=== PATIENT | female | born 1975 | race African-American/Black ===

== ENCOUNTER 2025-02-04 05:38 | Emergency (ER) | payer SELFPAY ==
--- OUTSIDE RECORDS SUMMARY | 2025-01-19 02:02 | XMS_ITS | Continuity of Care Document ---
Author Organization [facility] [place] Address [address] [place] [address] Phone Care Team Providers Care Baggagemaster Name Role Phone Monroe MS, PT, ATC, Keara Unavailable Candace vailable Procedures Procedure Date Therapeutic Activities Therapeutic Exercise Neuromuscular Re-Ed Therapeutic Activities Neuromuscular Re-Ed ELECTRICIAN RADIO Acute Therapeutic Activities Neuromuscular Re-Ed Therapeutic Exercise ELECTRICIAN RADIO Acute Therapeutic Activities Therapeutic Exercise Therapeutic Activities Neuromuscular Re-Ed Therapeutic Exercise Hot or Cold Pack Therapeutic Activities Therapeutic Exercise PT Evaluation Moderate Complexity Therapeutic Activities Neuromuscular Re-Ed Therapeutic Exercise Hot or Cold Pack Therapeutic Activities Theraputty Therapeutic Activities Neuromuscular Re-Ed Therapeutic Exercise Identified as not an unhealthy alcohol u ser Not identified as unhealthy alcohol via screening OT Re-Evaluation Neuromuscular Re-Ed Therapeutic Activities Therapeutic Exercise Glove - Edema 3/4 Therapeutic Activities Neuromuscular Re-Ed Therapeutic Exercise Therapeutic Activities Neuromuscular Re-Ed Therapeutic Exercise Identified as not an unhealthy alcohol u ser Not identified as unhealthy alcohol via screening OT Evaluation Low Complexity Neuromuscular Re-Ed Therapeutic Activities Paraffin Bath Progress Note Therapeutic Activities Neuromuscular Re-Ed Therapeutic Exercise Manual Therapy Hot or Cold Pack Paraffin Bath Hot or Cold Pack Paraffin Bath Orthotic Mgmt and Training Safe Position Gutter Hand based 019 Therapeutic Exercise Therapeutic Activities Neuromuscular Re-Ed Hot or Cold Pack Manual Therapy Paraffin Bath Progress Note Therapeutic Activities Therapeutic Exercise Manual Therapy Neuromuscular Re-Ed Paraffin Bath Hot or Cold Pack Therapeutic Exercise Therapeutic Activities Neuromuscular Re-Ed Manual Therapy Hot or Cold Pack Paraffin Bath Therapeutic Exercise Therapeutic Activities Neuromuscular Re-Ed Manual Therapy Hot or Cold Pack Paraffin Bath Therapeutic Exercise Therapeutic Activities Neuromuscular Re-Ed Hot or Cold Pack Manual Therapy Paraffin Bath Progress Note Therapeutic Exercise Neuromuscular Re-Ed Therapeutic Activities Hot or Cold Pack Manual Therapy Therapeutic Exercise Therapeutic Activities Manual Therapy Neuromuscular Re-Ed Hot or Cold Pack Paraffin Bath Therapeutic Exercise Therapeutic Activities Manual Therapy Neuromuscular Re-Ed Paraffin Bath Hot or Cold Pack Therapeutic Exercise Therapeutic Activities Manual Therapy Therapeutic Exercise Therapeutic Activities Neuromuscular Re-Ed Manual Therapy Hot or Cold Pack Paraffin Bath LMB/Safety Pin Therapeutic Exercise Therapeutic Activities Neuromuscular Re-Ed Hot or Cold Pack Manual Therapy Therapeutic Exercise Therapeutic Activities Manual Therapy Hot or Cold Pack Neuromuscular Re-Ed Therapeutic Exercise Therapeutic Activities Neuromuscular Re-Ed Manual Therapy Hot or Cold Pack Therapeutic Exercise Therapeutic Activities Neuromuscular Re-Ed Manual Therapy Hot or Cold Pack Paraffin Bath Therapeutic Exercise Therapeutic Activities Neuromuscular Re-Ed Manual Therapy Hot or Cold Pack Paraffin Bath Therapeutic Exercise Therapeutic Activities Neuromuscular Re-Ed Manual Therapy Hot or Cold Pack Yoni Straps 2 Therapeutic Exercise Therapeutic Activities Neuromuscular Re-Ed Manual Therapy Hot or Cold Pack Therapeutic Exercise Therapeutic Activities Neuromuscular Re-Ed Manual Therapy Hot or Cold Pack Therapeutic Exercise Therapeutic Activities Neuromuscular Re-Ed Manual Therapy Hot or Cold Pack OT Evaluation Low Complexity Therapeutic Exercise Therapeutic Activities Manual Therapy Advance Directives Directive Yes / No Effective Date File Name No Information Encounters Encounter Description Practice Location Reason(s) For Visit Diagnoses Date Provider Providers Copied on Encounter [address], [id number], tel:[phone] [place] No Information 5 Monroe Sarah. [address] [place] [address], [address], [place], [place], [facility], . tel:[phone] [facility] [address] [place] [address], [id number], tel:[phone] [place] No Information Monroe Sarah. [address] [place] [address], [address], [place], [place], [facility], [place]. tel:[phone] Referring Provider: Cirilo Shaw, [address] [place] [address] [address], [place], [address]. tel:[phone] [facility] [address], [id number], tel:[phone] [place] No Information 5 Yany Muller. . Referring Provider: Crow delatorre, [address] [place] [address] [address], [place], [address]. tel:[phone] [facility] [address] [place] [address], [place], [id number], tel:[phone] [place] No Information 5 Monroe Sarah. [address] [place] [address], [address], [place], [place], [facility], . tel:[phone] Referring Provider: Cirilo Shaw, [address] [place] [address] [address], [place], [address]. tel:[phone] [facility], [place], [place], [id number], [place] tel:[phone] [place] No Information 5 Yany Muller. . Referring Provider: Crow delatorre, [address], [place], [address]. tel:[phone] [facility], [place], [place], [id number], [place] tel:[phone] [place] No Information 5 [facility]. . Referring Provider: Cirilo Shaw, [address], [place], [address]. tel:[phone] [facility], [place], [place], [address], [place] tel:[phone] [place] No Information 5 Yany Muller. . Referring Provider: Crow delatorre, [address], [place], [address]. tel:[phone] [facility], [place], [place], [address], [place] tel:[phone] [place] No Information 5 [place] Brynn. . Referring Provider: Cirilo Shwa, [address], [place], [address]. tel:[phone] [facility], [place], [place], [id number], [place] tel:[phone] [place] No Information 5 Yany Muller. . Referring Provider: Crow delatorre, [address], [place], [address]. tel:[phone] [facility], [place], [place], [address], [place] tel:[phone] [place] No Information 5 Yany Muller. . Referring Provider: Crow Krummenach er, [address], [place], [address]. tel:[phone] [facility], [place], [place], [address], [place] tel:[phone] [place] No Information 5 Meirink Renzo. . Referring Provider: Crow delatorre, [address], [place], [address]. tel:[phone] [facility], [place], [place], [address], [place] tel:[phone] [place] No Information 5 Meirink Renzo. . Referring Provider: Crow delatorre, [address], [place], [address]. tel:[phone] [facility] [address], [place], [place], [id number], [place] tel:[phone] [place] No Information 5 Meirink Renzo. . Referring Provider: Crow delatorre, [address], [place], [address]. tel:[phone] [facility], [place], [place], [address], [place] tel:[phone] [place] No Information 5 Meirink Renzo. . Referring Provider: Crow delatorre, [address], [place], [address]. tel:[phone] [facility], [place], [place], [address], [place] tel:[phone] [place] No Information 9 Aiden Mcclendon. [address], [address], [place], [address], [place]. tel:[phone] Referring Provider: Frederick Childers, [address], [place], [address]. tel:[phone] [facility], [place], [place], [id number], tel:[phone] [place] No Information 0 Schwarztraube r Danelle. [address], [address], [place], [place], [facility], . tel:[phone] Referring Provider: Frederick Childers, [address], [place], [address]. tel:[phone] [facility], [place], [place], [address], tel:[phone] [place] No Information Kamari Martinez . Referring Provider: Frederick Childers, [address], [place], [address]. tel:[phone] [facility], [place], [place], [id number], tel:[phone] [place] No Information Schwarztraube r Danelle. [address] [facility] [address], [address], [place], [place], [facility], [place]. tel:[phone] Referring Provider: Frederick Childers, [address], [place], [address]. tel:[phone] [facility], [place], [place], [address], [place] tel:[phone] [place] No Information Schwarztraube r Danelle. [address] [facility] [address], [address], [place], [facility], . tel:[phone] Referring Provider: Frederick Childers, [address], [place], [address]. tel:[phone] [facility], [place], [place], [address], tel:[phone] [place] No Information Schwarztraube r Danelle. [address], [address], [place], [facility], . tel:[phone] Referring Provider: Frederick Childers, [address], [place], [address]. tel:[phone], [id number], tel:[phone] [place] No Information Schwarztraube r Danelle. [address], [address], [place], [facility], . tel:[phone] Referring Provider: Frederick Childers, [address], [place], [address]. tel:[phone], [id number], tel:[phone] [place] No Information Schwarztraube r Danelle. [address] [facility] [address], [address], [place], [facility], . tel:[phone] Referring Provider: Frederick Childers, [address], [place], [address]. tel:[phone], [id number], tel:[phone] [place] No Information Schwarztraube r Danelle. [address] [facility] [address], [address], [place], [facility], . tel:[phone] Referring Provider: Frederick Childers, [address], [place], [address]. tel:[phone] [place] [address], [id number], tel:[phone] [place] No Information Schwarztraube r Danelle. [address] [place] [address], [address], [place], [place], [facility], . tel:[phone] Referring Provider: Frederick Childers, [address], [place], [address]. tel:[phone] [place] [address] [address], [place], [place], [address], tel:[phone] [place] No Information Kamari Canales. . Referring Provider: Frederick Childers, [address], [place], [address]. tel:[phone] [facility] [address] [place] [address], [place], [place], [address], tel:[phone] [place] No Information Schwarztraube r Danelle. [address] [place] [address], [address], [place], [place], [facility], [place]. tel:[phone] Referring Provider: Frederick Childers, [address], [place], [address]. tel:[phone] [facility] [address] [place], [place] [address], [place], [place], [address], tel:[phone] [place] No Information Schwarztraube r Danelle. [address] [place] [address], [address], [place], [place], [facility], [place]. tel:[phone] Referring Provider: Frederick Childers, [address], [place], [address]. tel:[phone] [facility] [address] [place], [place] [address], [place], [place], [address], tel:[phone] [place] No Information 9 Schwarztraube r Danelle. [address] [place] [address], [address], [place], [address], [place]. tel:[phone] Referring Provider: Frederick Childers, [address], [place], [address]. tel:[phone] [facility], [place], [place], [address], [place] tel:[phone] [place] Stiffness of right hand, not elsewhere classifiedMusc le weakness (generalized)O ther specified soft tissue disordersPain in right hand 0 9 Schwarztraube r Danelle. [address] [place] [address], [address], [place], [address], [place]. tel:[phone] [facility], [place], [place], [address], [place] tel:[phone] [place] Stiffness of right hand, not elsewhere classifiedMusc le weakness (generalized)O ther specified soft tissue disordersPain in right hand 9 Schwarztraube r Danelle. [address] [facility], [address], [place], [address], [place]. tel:[phone] [facility], [place], [place], [address], [place] tel:[phone] [place] Stiffness of right hand, not elsewhere classifiedMusc le weakness (generalized)O ther specified soft tissue disordersPain in right hand 9 Schwarztraube r Danelle. [address] [facility], [address], [place], [address], [place]. tel:[phone] [facility], [place], [place], [address], [place] tel:[phone] [place] Stiffness of right hand, not elsewhere classifiedMusc le weakness (generalized)O ther specified soft tissue disordersPain in right hand 9 Schwarztraube r Danelle. [address] [facility], [address], [place], [address], [place]. tel:[phone] [facility], [place], [place], [address], tel:[phone] [place] Stiffness of right hand, not elsewhere classifiedMusc le weakness (generalized)O ther specified soft tissue disordersPain in right hand 9 Benites Ally. . [facility], [place], [place], [address], tel:[phone] [place] Stiffness of right hand, not elsewhere classifiedMusc le weakness (generalized)O ther specified soft tissue disordersPain in right hand 9 Aiden Mcclendon. [address] [facility], [address], [place], [address], . tel:[phone] [facility], [place], [place], [address], tel:[phone] [place] Stiffness of right hand, not elsewhere classifiedMusc le weakness (generalized)O ther specified soft tissue disordersPain in right hand 9 Benites Ally. . [facility], [place], [place], [address], tel:[phone] [place] Stiffness of right hand, not elsewhere classifiedMusc le weakness (generalized)O ther specified soft tissue disordersPain in right hand 9 Irvin Qiu. . Family History Family Member Type Diagnosis Age At Onset No Information Payers Payer name Insurance type Covered constitution party ID Authorasaa patti(s) [employer] EPO WC SP WC [id number] Social History Type Description Quantity Date Captured Comments Sex Female Smoking Status No Information Chief Complaint And Reason For Visit No Information Reason For Referral Reason For Referral No Information Plan Of Treatment Date Type Action Status Goal Tobacco cessation counseling completed Goal Tobacco Cessation Counseling completed Goal Tobacco cessation counseling completed Goal Tobacco Cessation Counseling completed Referral Ordered: Referrals: Specialist. Evaluate and Treat (related to Adjustment disorder with depressed mood) ordered Referral Ordered: Depression: Depression management program timeframe: 1 Day. (related to Depression) ordered Referral Ordered: Clinical Psychology (related to Depression) ordered Referral Ordered: Referrals: Specialist. Evaluate and Treat (related to Adjustment disorder with depressed mood) ordered Referral Ordered: Depression: Depression management program timeframe: 1 Day. (related to Depression) ordered Referral Ordered: Clinical Psychology (related to Depression) ordered Referral Ordered: Referrals: Specialist. Evaluate and Treat (related to Adjustment disorder with depressed mood) ordered Referral Ordered: Depression: Depression management program timeframe: 1 Day. (related to Depression) ordered Referral Ordered: Clinical Psychology (related to Depression) ordered Referral Ordered: Clinical Psychology (related to Depression) ordered Referral Ordered: Clinical Psychology (related to Depression) ordered Referral Ordered: Clinical Psychology (related to Depression) ordered History Of Present Illness Encounter Date Complaint History Of Prese nt Illness No Information Functional Status Date Functional Assessmen t No Information Instructions Date Instruction Additional Infor mation No Information Assessments Type Assessment Date No Information Patient Care Teams Name Effective Dates (start - stop) Status Members No Information
--- OUTSIDE RECORDS SUMMARY | 2025-02-01 04:30 | XMS_ITS | Continuity of Care Document ---
Author Organization [facility] Address [address] [place] [address] Phone Care Team Providers Care Chief Compressor Station Engineer Name Role Phone Vel EDMONDSON, Jamie Unavailable Unavailabl e Allergies, Adverse Reactions, Alerts Substance Reaction Status Criticality PENICILLIN Active No Information CEPHALEXIN MONOHYDRATE Itching(severe) Active No Information Medications Medication Instructions Dosage Effective Dates (start - stop) Status Comments carvedilol 12.5 mg tablet take 1 tablet by oral route 2 times every day with food 12.5 MG - Active hydrochlorothiazide 25 mg tablet take 1 tablet by oral route every day 25 MG - Active lisinopril 40 mg tablet take 1 tablet by oral route every day 40 MG - Active atorvastatin 40 mg tablet take 1 tablet by oral route every day 40 MG - Active Procedures Procedure Date DETERMINATION OF REFRACTIVE STATE OPH MEDICAL XM&EVAL COMPRE NEW PT 1+ VST Alcohol and/or drug screening OFFICE OUTPT EST 25 MIN Alcohol and/or drug screening 5 1ST COMPRE PREV MED E/M NEW PT 40-64 Nov Urinalysis, Auto, w/o Scope Caries Risk Assess & Doc High Risk Dental Panoramic Radiographic Image Comprehensive Oral Evaluation-New/Est Pt OFFICE/OUTPATIENT VISIT, EST OFFICE OUTPT EST 25 MIN HEMOGLOBIN; GLYCOSYLATED (A1C) HBA1C LEVEL < 7.0% (DM) PERIODIC COMPREHENSIVE PREVENTIVE MED RE E/M; ESTABLISHED PATIENT; 40-64 OFFICE OUTPT EST 25 MIN Alcohol and/or drug screening URINE TEST, BY VISUAL COLOR CO MPARISON METHODS Urinalysis, Auto, w/o Scope OFFICE/OUTPATIENT VISIT, EST Therapeutic behavioral services, per 15 minutes Injection, ketorolac tromethamine, per 3 0 mg OFFICE OUTPT EST 25 MIN URINE TEST, BY VISUAL COLOR CO MPARISON METHODS Urinalysis, Auto, w/o Scope BEHAVIORAL HEALTH OUTREACH SERVICE (PLAN ALISSA APPROACH TO REACH A TARGETED OFFICE/OUTPATIENT VISIT, EST OFFICE/OUTPATIENT VISIT, EST OFFICE/OUTPATIENT VISIT, EST Voided Encounter Voided Encounter SMEAR, WET MOUNT, SALINE/INK PERIODIC COMPREHENSIVE PREVENTIVE MED RE E/M; ESTABLISHED PATIENT; 40-64 Immun admin-adult or WO counseling - fir st vaccine/toxoid Fluzone, Preservative Free, 4yrs And Old er (Adult) SKIN TEST; TUBERCULOSIS, INTRADERMAL Jul Urinalysis, Auto, w/o Scope URINE TEST, BY VISUAL COLOR CO MPARISON METHODS Immun admin-adult or WO counseling - fir st vaccine/toxoid HEP A/HEP B VACC, ADULT IM OFFICE O/P EST 5 MIN Voided Encounter Voided Encounter OFFICE/OUTPATIENT VISIT, EST URINE TEST, BY VISUAL COLOR CO MPARISON METHODS Urinalysis, Auto, w/o Scope OFFICE/OUTPATIENT VISIT, EST PERIODIC COMPREHENSIVE PREVENTIVE MED RE E/M; ESTABLISHED PATIENT; 40-64 Urinalysis, Auto, w/o Scope OFFICE/OUTPATIENT VISIT, EST OFFICE/OUTPATIENT VISIT, EST OFFICE OUTPT EST 25 MIN HEMOGLOBIN; GLYCOSYLATED (A1C) 20 PERIODIC COMPREHENSIVE PREVENTIVE MED RE E/M; ESTABLISHED PATIENT; 40-64 Alcohol and/or drug screening 9 Urinalysis, Auto, w/o Scope URINE TEST, BY VISUAL COLOR CO MPARISON METHODS Urinalysis, Auto, w/o Scope HEPATITIS C ANTIBODY; HIV-1 Antigen, W/HIV-1 & HIV-2 Antibody, Single Re OFFICE/OUTPATIENT VISIT, EST Prescription Drug, Oral, Non-Chemotherap eutic, NOS Urinalysis, Auto, w/o Scope URINE TEST, BY VISUAL COLOR CO MPARISON METHODS OFFICE/OUTPATIENT VISIT, EST Urinalysis, Auto, w/o Scope URINE TEST, BY VISUAL COLOR CO MPARISON METHODS OFFICE/OUTPATIENT VISIT, EST Urinalysis, Auto, w/o Scope URINE TEST, BY VISUAL COLOR CO MPARISON METHODS HOSPITAL DISCHARGE DAY MANAGEMENT; 30 MT NUTES OR LESS 1ST HOSP CARE RI D 50 MIN OFFICE/OUTPATIENT VISIT, EST Urinalysis, Auto, w/o Scope URINE TEST, BY VISUAL COLOR CO MPARISON METHODS HOSPITAL DISCHARGE DAY MANAGEMENT; 30 MT NUTES OR LESS Voided Encounter 1ST HOSP CARE RI D 50 MIN LAPS TOTAL HYSTERECTOMY 250 G/< W TUBE/O VARY OFFICE/OUTPATIENT VISIT, EST Urinalysis, Auto, w/o Scope URINE TEST, BY VISUAL COLOR CO MPARISON METHODS HYSTEROSCOPY, SURGICAL; WITH REMOVAL OF LEIOMYOMATA OFFICE OUTPT EST 25 MIN HEMOGLOBIN; GLYCOSYLATED (A1C) 16 COLLECTION OF CAPILLARY BLOOD SPECIMEN ( EG, FINGER, HEEL, EAR STICK) COLLECTION OF VENOUS BLOOD BY VENIPUNCTU RE BLOOD COUNT; COMPLETE (CBC), AUTOMATED D IFF COMPRE METAB PANEL IRON IRON BINDING CAPACITY FERRITIN CYANOCOBALAMIN (VITAMIN B-12); 16 FOLIC ACID; SERUM THYROID STIMULATING HORMONE (TSH) LIPID PANEL THYROXINE; FREE OFFICE/OUTPATIENT VISIT, EST Urinalysis, Auto, w/o Scope URINE TEST, BY VISUAL COLOR CO MPARISON METHODS INJ MEDROXYPROGESTERONE ACETATE 1 MG Nov OFFICE/OUTPATIENT VISIT, NEW Alcohol and/or drug screening 6 URINE TEST, BY VISUAL COLOR CO MPARISON METHODS Urinalysis, Auto, w/o Scope COLLECTION OF VENOUS BLOOD BY VENIPUNCTU RE Advance Directives Directive Yes / No Effective Date File Name No Information Encounters Encounter Description Practice Location Reason(s) For Visit Diagnoses Date Provider Providers Copied on Encounter [facility], [address], [place], [place], [address] , [place] tel: [phone] Ditto Bianchi No Information 5 Vel Ayala. [address], [place], [place], [address], [place]. [phone] [facility], [address], [place], [place], [address] , [place] tel: [phone] [facility] [place] [facility] blurry vision (chief complaint)perry rry vision (chief complaint) PresbyopiaAg e-related nuclear cataract, bilateralMyo mayuri, bilateral 5 Farzaneh Matias. [address], [place], [place], [address], . tel:[phone] Referring Provider: Polly Moy, [address], [place], [address] . tel:[phone] [facility], [address], [place], [place], [address] , tel:[phone] [employer] [place] [facility] Bianchi establish care (chief complaint)bro ryley rib (chief complaint)bro ryley finger (chief complaint)fin cynthia tips (chief complaint) Body mass index (BMI) 21.0-21.9, adultAllergi c rhinitisHTNO ther specified disorders of thyroidPares thesia of skinCoughDif ficulty in swallowingIm pacted cerumen, bilateral 5 Vel Ayala. [address], [place], [place], [address], . tel:[phone] Referring Provider: Jamie Crowder, [address], [place], [address] . tel:[phone] OFFICE OUTPT EST 25 MIN [facility], [address], [place], [place], [address] , tel:[phone] [employer] [place] [facility] [place] ov (chief complaint) Encounter for screening for other disorderHTNP aresthesia of skinOther specified disorders of thyroidEncou nter for screening for cancer of colon 5 Julio César Chaney. [address], [place], [place], [address], . tel:[phone] Referring Provider: Ritu Angela, [address], [place], [address] . tel:[phone] 1ST COMPRE PREV MED E/M NEW PT 40-64 [facility], [address], [place], [place], [address] , tel:[phone] [facility] annual exam (chief complaint)hx (chief complaint) Encounter for screening for other disorderBody mass index (BMI) 23.0-23.9, adultEncntr for obstetrics and gynecology professor exam (general) (routine) w/o abn findingsEncn tr screen mammogram for malignant neoplasm of breastEncoun ter for screening for cancer of colonEncount er for STI screeningTob acco abuse counselingAc quired absence of both cervix and uterus 5 Rhett Heath. [address], [place], [place], [address], [place]. tel:[phone] Referring Provider: Ivana Delaney, [address], [place], [address] . tel:[phone] [facility], [address], [place], [address] , [place] tel: [phone] [facility] Encounter for dental exam and cleaning w abnormal findings 5 Casimiro Cedeño. [address], [place], [place], [address], [place]. tel:[phone] Referring Provider: Davidson Kirkpatrick, [address], [place], [address] . tel:[phone] [facility], [address], [place], [place], [address] , [place] tel: [phone] [facility] Other specified disorders of thyroid 5 Julio César Chaney. [address], [place], [place], [address], [place]. tel:[phone] OFFICE/OUTPATI ENT VISIT, EST [facility], [address], [place], [place], [address] , [place] tel: [phone] [facility] Intercostal painHTNBody mass index (BMI) 23.0-23.9, adult 5 Julio César Chaney. [address], [place], [place], [address], [place]. tel:[phone] Referring Provider: Ritu Angela, [address], [place], [address] . tel:[phone] OFFICE OUTPT EST 25 MIN [facility], [address], [place], [place], [address] , [place] tel: [phone] [facility] Body mass index (BMI) 23.0-23.9, adultHTNEnco unter for screening for cancer of colonThyroid noduleOther specified disorders of thyroidHyper calcemiaHype rlipidemia, unspecifiedI ntercostal painEncounte r for screening, unspecified 5 Julio César Chaney. [address], [place], [place], [address], . tel:[phone] PERIODIC COMPREHENSIVE PREVENTIVE MED REE/M; ESTABLISHED PATIENT; 40-64 [facility], [address], [place], [place], [address] , [place] tel: [phone] [facility] Follow up (chief complaint) Body mass index (BMI) 34.0-34.9, adultWell adult check w/ abnormal findingThyro id noduleHTNSym ptoms such as flushing, sleeplessnes s, headache, lack of concentratio n, associated with natural (age-related ) menopauseEnc ntr screen mammogram for malignant neoplasm of breastEncoun ter for screening for cancer of colonAcute vaginitisEnc ounter for screening for other disorder 4 Bijan Sarah. [address], [place], [place], [address], [place]. tel:[phone] OFFICE/OUTPATI ENT VISIT, EST [facility], [address], [place], [place], [address] , [place] tel:[phone] [facility] UC F/U (chief complaint) Body mass index (BMI) 40.0-44.9, adultHTNPain in right shoulder 2 Arastoo Fátima. [address], [place], [place], [address], [place]. tel:[phone] Referring Provider: Padma Fay, [address], [place], [address] . tel:[phone] [facility], [address], [place], [place], [address] , tel:[phone] [facility] No Information 1 No Information OFFICE OUTPT EST 25 MIN [facility], [address], [place], [place], [address] , tel:[phone] [facility] Blood pressure (chief complaint) HeadacheHTNT hyroid noduleSympto ms such as flushing, sleeplessnes s, headache, lack of concentratio n, associated with natural (age-related ) menopauseToo thache NOSEncounter for screening, unspecified 1 Sumeet Rouse. [address], [place], [place], [address], . tel:[phone] Referring Provider: Padma Fay, [address], [place], [address] . tel:[phone] [facility], [address], [place], [place], [address] , tel:[phone] [facility] No Information 1 Avila Davidson. [address], [place], [place], [address], . tel:[phone] [facility], [address], [place], [place], [address] , tel: [phone] [facility] Thyroid nodule 1 Arastoo Fátima. [address], [place], [address], [place]. tel:[phone] [facility], [address], [place], [place], [address] , tel:[phone] [facility] Abnormal results of thyroid function studiesThyro id nodule 1 Arastoo Fátima. [address], [place], [place], [address], [place]. tel:[phone] OFFICE/OUTPATI ENT VISIT, EST [facility], [address], [place], [place], [address] , tel:[phone] [facility] HTN (chief complaint)too th pain (chief complaint) Body mass index (BMI) 22.0-22.9, adultDental abscess w/o sinusHyperte nsion Dec-2 1 Arastoo Fátima. [address], [place], [place], [address], [place]. tel:[phone] OFFICE/OUTPATI ENT VISIT, EST [facility], [address], [place], [place], [address] , tel:[phone] [facility] hypertension (chief complaint) Body mass index (BMI) 22.0-22.9, adultPain in right wristParesth esia of skinHyperten zulay 1 Rodney Shine. [address], [place], [place], [address], [place]. tel:[phone] Referring Provider: Fátima Stevens, [address], [place], [address] . tel:[phone] OFFICE/OUTPATI ENT VISIT, EST [facility], [address], [place], [place], [address] , tel: [phone] [facility] hosp f/u (chief complaint) Body mass index (BMI) 21.0-21.9, adultStroke 1 Rodney Shine. [address], [place], [place], [address], . tel:[phone] Referring Provider: Fátima Stevens, [address], [place], [address] . tel:[phone] [facility], [address], [place], [place], [address] , tel: [phone] [facility] No Information 1 Ephraim Hernandez. [address], [place], [place], [address], [place]. tel:[phone] [facility], [address], [place], [place], [address] , [place] tel: [phone] [facility] No Information 1 Nurse Registered. [address], [place], [place], [address], . 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 [address], [place], [place], [address], [place]. tel:[phone] [facility], [address], [place], [place], [address] , tel: [phone] [facility] No Information 1 Riccardo Sethi. [address], [place], [place], [address], [place]. tel:[phone] OFFICE O/P EST 5 MIN [facility], [address], [place], [place], [address] , [place] tel: [phone] [facility] Vaccine Twinrix (chief complaint) Encounter for immunization 1 Riccardo Sethi. [address], [place], [place], [address], [place]. tel:[phone] [facility], [address], [place], [place], [address] , [place] tel: [phone] [facility] No Information 0 Riccardo Sethi. [address], [place], [place], [address], [place]. 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 [address], [place], [place], [address], . tel:[phone] Referring Provider: Kimmie pearl, [address], [place], [address] . tel:[phone] OFFICE/OUTPATI ENT VISIT, EST [facility], [address], [place], [place], [address] , [place] tel:[phone] [facility] hypertension (chief complaint)Ank le pain (chief complaint) Body mass index (BMI) 21.0-21.9, adultHyperte nsionPain in right ankle and joints of right footTobacco abuse counseling 0 Riccardo Sethi. [address], [place], [place], [address], [place]. tel:[phone] Referring Provider: Kimmie pearl, [address], [place], [address] . 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 [address], [place], [place], [address], [place]. tel:[phone] Referring Provider: Kimmie pearl [address], [place], [address] . tel:[phone] OFFICE/OUTPATI ENT VISIT, EST [facility], [address], [place], [place], [address] , [place] tel:[phone] [facility] tooth infection (chief complaint) Chronic pain syndromeCell ulitis and abscess of mouth 0 Ephraim Hernandez. [address], [place], [place], [address], [place]. tel:[phone] OFFICE/OUTPATI ENT VISIT, EST [facility], [address], [place], [place], [address] , [place] tel:[phone] [facility] med eval (chief complaint) Essential (primary) hypertension Stress fracture, left ankle, initial encounter for fracture 0 Alon Marin. [address], [place], [place], [address], . tel:[phone] OFFICE OUTPT EST 25 MIN [facility], [address], [place], [place], [address] , [place] tel:[phone] [facility] headaches/ blood pressure (chief complaint) Body mass index (BMI) 21.0-21.9, adultEssenti al (primary) hypertension Dietary counseling and surveillance Encounter for general adult medical examination w/ abnormal findingOther long term care pharmacist drug therapyTobac co abuse counseling 0 Alon Marin. [address], [place], [place], [address], . tel:[phone] Referring Provider: Kimmie Gabrielil-Danielle pearl, [address], [place], [address] . tel:[phone] PERIODIC COMPREHENSIVE PREVENTIVE MED REE/M; ESTABLISHED PATIENT; 40-64 [facility], [address], [place], [place], [address] , [place] tel:[phone] [facility] annual COOK FAST FOOD (chief complaint) Body mass index (BMI) 20.0-20.9, adultEncntr for obstetrics and gynecology professor exam (general) (routine) w/o abn findingsDiso rder of thyroid, unspecifiedA cute vaginitisEnc ounter for screening mammogram for cancer of breastHTNEnc ounter for screening for other disorder 9 No Information Referring Provider: Kimmie pearl, [address], [place], [address] . tel:[phone] [facility], [address], [place], [place], [address] , [place] tel:[phone] [facility] Trichomonal vulvovaginit is 8 Bianca-Renee Burks. [address], [place], [place], [address], [place]. tel:[phone] Referring Provider: Kimmie pearl, [address], [place], [address] . tel:[phone] OFFICE/OUTPATI ENT VISIT, EST [facility], [address], [place], [place], [address] , [place] tel: [phone] [facility] retreat (chief complaint) Trichomonal vulvovaginit isEncntr for obstetrics and gynecology professor exam (general) (routine) w abnormal findings BiancaAngie Burks. [address], [place], [place], [address], [place]. tel:[phone] Referring Provider: Kimmie pearl, [address], [place], [address] . tel:[phone] OFFICE/OUTPATI ENT VISIT, EST [facility], [address], [place], [place], [address] , [place] tel:[phone] [facility] post-op (chief complaint) Encntr for f/u exam aft trtmt for cond oth than malig neoplmEncntr screen for infections w sexl mode of transmissEnc ntr for obstetrics and gynecology professor exam (general) (routine) w abnormal findings Mark Burks. [address], [place], [place], [address], [place]. tel:[phone] Referring Provider: Kimmie Gabrielil-Danielle pearl, [address], [place], [address] . tel:[phone] OFFICE/OUTPATI ENT VISIT, EST [facility], [address], [place], [address] , [place] tel:[phone] [facility] post op (chief complaint) Encntr for f/u exam aft trtmt for cond oth than malig neoplmEncntr for obstetrics and gynecology professor exam (general) (routine) w abnormal findings 7 Bianca-Renee jan Burks. [address], [place], [place], [address], [place]. tel:[phone] Referring Provider: Kimmie Gabrielil-Danielle pearl, [address], [place], [address] . tel:[phone] [facility], [address], [place], [place], [address] , [place] tel:[phone] [facility] Postproc seroma of unsp and adnexa following other procedure 7 Bianca-Renee jan Burks. [address], [place], [place], [address], [place]. tel:[phone] HOSPITAL DISCHARGE DAY MANAGEMENT; 30 MINUTES OR LESS [facility], [address], [place], [place], [address] , [place] tel: [phone] [facility] No Information 7 Bianca-Renee montoya Kimmie. [address], [place], [place], [address], [place]. tel:[phone] 1ST HOSP CARE RI D 50 MIN [facility], [address], [place], [place], [address] , [place] tel:[phone] [facility] No Information 7 Bianca-Renee montoya Kimmie. [address], [place], [place], [address], [place]. tel:[phone] OFFICE/OUTPATI ENT VISIT, EST [facility], [address], [place], [place], [address] , [place] tel: [phone] [facility] pelvic pain (chief complaint) Encntr for f/u exam aft trtmt for cond oth than malig neoplmConsti pationEncntr for obstetrics and gynecology professor exam (general) (routine) w abnormal findings 7 Bianca-Renee jan Burks. [address], [place], [place], [address], [place]. tel:[phone] Referring Provider: Kimmie Gabrielil-Call stacyn, [address], [place], [address] . tel:[phone] HOSPITAL DISCHARGE DAY MANAGEMENT; 30 MINUTES OR LESS [facility], [address], [place], [place], [address] , [place] tel: [phone] [facility] No Information 7 Bianca-Renee montoya Kimmie. [address], [place], [place], [address], [place]. tel:[phone] [facility], [address], [place], [place], [address] , [place] tel: [phone] [place] [address] No Information 7 Bianca-Renee montoya Kimmie. [address], [place], [place], [address], [place]. tel:[phone] 1ST HOSP CARE RI D 50 MIN [facility], [address], [place], [place], [address] , [place] tel: [phone] [place] [address] No Information 7 Bianca-Renee montoya Kimmie. [address], [place], [place], [address], [place]. tel:[phone] [facility], [address], [place], [place], [address] , [place] tel: [phone] [place] [address] No Information 7 Bianca-Renee montoya Kimmie. [address], [place], [place], [address], [place]. tel:[phone] [facility], [address], [place], [place], [address] , [place] tel: [phone] [facility] Inconclusive mammogram 7 Bianca-Renee Burks. [address], [place], [place], [address], [place]. tel:[phone] OFFICE/OUTPATI ENT VISIT, EST [facility], [address], [place], [place], [address] , [place] tel: [phone] [facility] post ob (chief complaint) Leiomyoma of uterusAbnorm al uterine bleedingEncn tr for f/u exam aft trtmt for cond oth than malig neoplmEncntr for obstetrics and gynecology professor exam (general) (routine) w abnormal findings 6 Bianca-Renee Burks. [address], [place], [place], [address], [place]. tel:[phone] Referring Provider: Kimmie pearl, [address], [place], [address] . tel:[phone] [facility], [address], [place], [place], [address] , [place] tel: [phone] [facility] No Information 6 Bianca-Renee Burks. [address], [place], [place], [address], [place]. [phone] [facility], [address], [place], [address] , [place] tel: [phone] [facility] Iron deficiency anemia, unspecified 0 6 Ephraim Hernandez. [address], [place], [place], [address], [place]. [phone] OFFICE OUTPT EST 25 MIN [facility], [address], [place], [place], [address] , [place] tel: [phone] [facility] abnormal bloodpressure (chief complaint) AnemiaHTNMen ometrorrhagi aAbnormal uterine hemorrhage 6 Ephraim Hernandez. [address], [place], [place], [address], [place]. tel:[phone] Referring Provider: David Ye, [address], [place], [address] . tel:[phone] OFFICE/OUTPATI ENT VISIT, EST [facility], [address], [place], [place], [address] , [place] tel: [phone] [facility] surgery consult (chief complaint) Abnormal uterine bleedingAnem iaLeiomyoma of uterusEncntr for obstetrics and gynecology professor exam (general) (routine) w abnormal findings 0 6 Bianca-Reneeroyce Burks. [address], [place], [place], [address], [place]. tel:[phone] Referring Provider: Kimmie Bianca-Danielle pearl, [address], [place], [address] . tel:[phone] [facility], [address], [place], [place], [address] , [place] tel: [phone] [facility] Inconclusive mammography due to dense breastsUnspe cified lump in breast 6 Ephraim Hernandez. [address], [place], [address], [place]. tel:[phone] [facility], [address], [place], [place], [address] , [place] tel: [phone] [facility] Inconclusive mammography due to dense breasts 6 summer. [address], [place], [place], [address], [place]. tel:[phone] OFFICE/OUTPATI ENT VISIT, NEW [facility], [address], [place], [place], [address] , [place] tel:[phone] [facility] ER f/u abnormal bleeding (chief complaint) Abnormal uterine bleedingEnco unter for STI screeningEnc ounter for screening mammogram for cancer of breastEncoun ter for screening for other disorderEnco unter for test, result unknown summer. [address], [place], [place], [id number], . tel:[phone] Referring Provider: Ivana Delaney [address], [place], [address] . tel:[phone] Family History Family Member Type Diagnosis Age At Onset Problem (finding) No family hist ory of Cancer, breast Problem (finding) No family hist ory of Cancer, colon Paternal grandfather Problem Glaucoma Problem (finding) No family hist ory of Cancer, ovarian Immunizations Vaccine Date Status Comments Fluzone/Flulaval/Fluarix Jack d (Influenza, 6 months and older, preservative free) administered Source: New Im munization Record Twinrix (HepA/HepB) administered Source: New Immunization Record COVID-19 Moderna administered Source: Oth er Registry COVID-19 Moderna administered Source: Ot er Registry Adacel/Boostrix (Tdap) administered Sourc e: Other Registry Payers Payer name Insurance type Covered alliance party ID Authoriza tibairon(s) [facility] CI [id number] [employer] CI [id number] [employer] CI [id number] Social History Type Description Quantity Date Captured Comments Alcohol Use Details Unknown Caffeine Use Details Unknown Tobacco Use Status Smoking Status No Information Sex Female Sexual Orientation Straight or heterosexual Jul Gender Identity Female Chief Complaint And Reason For Visit No Information Reason For Referral Reason For Referral No Information Plan Of Treatment Date Type Action Status Goal Tobacco cessation counseling completed Goal Dietary manageme nt education, guidance, and counseling completed Goal Tobacco cessation counseling completed Goal Tobacco cessation counseling completed Goal Tobacco cessation counseling completed Goal Lifestyle education regardin g diet completed Goal Tobacco cessation counseling completed Goal Lifestyle education regardin g diet completed Referral Ordered: Referrals: Neurology. Location: [facility]. Diagnostic testing Appointment date/timeframe: 01/04/2025 ordered Referral Ordered: Referrals: Mammography Screening and Diagnostic. Location: [facility] Appointment date/timeframe: 01/02/2025 ordered Referral Ordered: Endocrinology (related to Other specified disorders of thyroid) ordered Referral Ordered: Cardiology (related to HTN) ordered Referral Ordered: Cardiology (related to HTN) ordered Referral Ordered: Referrals: Cardiology. Location: [facility]. Diagnostic testing ordered Referral Ordered: Referrals: Cardiology. Location: [facility]. Evaluate and treat ordered Referral Referred To: [facility] Diagnostic Ultrasound [address] [place], [address] [phone] Ordered: Referrals: Radiology. [facility] Diagnostic Ultrasound Appointment date/timeframe: 11/15/2023 ordered Referral Ordered: Referrals: Endocrinology. Location: [facility]. Evaluate and treat ordered Referral Referred To: Adam Mauricio Ordered: Referrals: Endocrinology. Adam Mauricio. Location: [facility]. Evaluate and treat ordered Referral Referred To: [facility] Orthopedics [address]th [place], [address] [phone] Ordered: Referrals: Orthopedics. [facility] Orthopedics. Evaluate and treat Appointment date/timeframe: 11/17/2019 ordered Referral Referred To: [facility] Breast Center [address], [place], [phone] Ordered: Referrals: Mammography Screening and Diagnostic. [facility] Breast Center Appointment date/timeframe: 12/26/2019 ordered Referral Referred To: [facility] Breast Center [address], [place], [address] [phone] Ordered: Referrals: Mammography. [facility] Breast [place]. Diagnostic testing Appointment date/timeframe: 09/14/2018 ordered Referral Referred To: [facility] Plain X-Rays [address] [place], [address] [phone] Ordered: Referrals: Radiology. [facility] Plain X-Rays. Diagnostic testing ordered Referral Referred To: [facility] CAT Scans [address] [place], [address] [phone] Ordered: Referrals: Radiology. [facility] CAT Scans. Diagnostic testing Appointment date/timeframe: 10/09/2016 ordered Referral Ordered: Referrals: Hematology. Evaluate and treat Appointment date/timeframe: 02/05/2016 ordered Referral Referred To: [facility] Breast [place] [address], [place], [address] [phone] Ordered: Referrals: Mammography Screening Cntr. [facility]. Diagnostic testing ordered Referral Referred To: [facility] [address] [facility], [place], [address] [phone] Ordered: Referrals: Mammography Screening Cntr. [facility] Appointment date/timeframe: 12/25/2015 ordered Referral Referred To: [facility] OBGYN Ultrasounds [address] [facility] [address], [place], [address] [phone] Ordered: Referrals: Obstetrics/Dehydrogenation Converter Helper. [facility] OBGYN Ultrasounds Appointment date/timeframe: 12/19/2015 ordered Appointment Berenice Apple BOOKED Appointment Berenice Apple BOOKED Patient Education Shoulder Arthritis: Pastor sosa completed Future Order: Lab Order Cologuar d (COLOGUARD), Sent on: Sent Future Order: Lab Order PTH, Int act and Calcium (8837Q), Ordered on: Ordered Future Order: Lab Order Calcium, Ionized (306Q), Ordered on: Ordered Future Order: Lab Order T3 Free (FT3) (38153Q), Ordered on: Ordered Future Order: Lab Order TSH with Reflex to Free T4 (15583H), Ordered on: Ordered Future Order: Lab Order CBC (H/H , RBC, Indices, WBC, Plt) (1759Q), Ordered on: Ordered Future Order: Lab Order Comprehe nsive Metabolic Panel (62942G), Ordered on: Ordered Future Order: Lab Order Lipid Pa kathrin (7600Q), Ordered on: Ordered Future Order: Lab Order POC Hemo globin A1C (OC45), Ordered on: Ordered Future Order: Lab Order Urinalys is, Macroscopic (POC) (OC80), Ordered on: Ordered Future Order: Lab Order CBC (H/H , RBC, Indices, WBC, Plt) (1759Q), Ordered on: Ordered Future Order: Lab Order Comprehe nsive Metabolic Panel (72310G), Ordered on: Ordered Future Order: Lab Order Lipid Pa kathrin (7600Q), Ordered on: Ordered Future Order: Lab Order POC Hemo globin A1C (OC45), Ordered on: Ordered Future Order: Lab Order TSH with Reflex to Free T4 (67848Q), Ordered on: Ordered Future Order: Lab Order Urinalys is, Macroscopic (POC) (OC80), Ordered on: Ordered Future Order: Lab Order Vitamin D, 25-Hydroxy, Total, Immunoassay (47786Z), Ordered on: Ordered Future Order: Lab Order Vitamin B12 (Cobalamin) (927Q), Ordered on: Ordered Future Order: Lab Order C-Reacti ve Protein (CRP) (4420Q), Ordered on: Ordered Future Order: Lab Order Magnesiu m (622Q), Ordered on: Ordered Future Order: Lab Order Folate, Serum (466Q), Ordered on: Ordered Future Order: Lab Order Sed Rate by Modified Christelren (809) (809Q), Ordered on: Ordered Future Order: Lab Order Iron, To dex and Total Iron Binding Capacity (7573Q), Ordered on: Ordered Future Order: Lab Order Basic Me tabolic Panel (97551W), Ordered on: Ordered Future Order: Lab Order CBC (H/H , RBC, INDICES, WBC, PLT) (OC68), Ordered on: Ordered Future Order: Lab Order Ferritin (OC29), Ordered on: Ordered Future Order: Lab Order TSH with Reflex to Free T4 (OC58), Ordered on: Ordered Future Order: Lab Order Iron and Total Iron Binding Capacity (OC27), Ordered on: Ordered Future Order: Lab Order Urinalys is, Macroscopic (OC80), Ordered on: Ordered Future Order: Lab Order HCG (Pre gnancy Test) - Urine - POC (OC5), Ordered on: Ordered Nutrition Recommendation Nutrition therap y completed Nutrition Recommendation Nutrition therap y completed Nutrition Recommendation Nutrition therap y completed Nutrition Recommendation Nutrition therap y completed Nutrition Recommendation Nutrition therap y completed Nutrition Recommendation Nutrition therap y completed Nutrition Recommendation Nutrition therap y completed Nutrition Recommendation Nutrition therap y completed Nutrition Recommendation Nutrition therap y completed History Of Present Illness Encounter Date Complaint History Of Prese nt Illness blurry vision The 49 Year old female presents for evaluation of blurry vision in the right eye and left eye. The onset was gradual. It affects both near and far vision. The symptom is constant. broken finger 4th digit left h and establish care transfer of care broken rib went to [facility] finger tips fingers always c old and numbness ov HTN: denies CP/n ew SOB, changes in vision. Currently taking carvedilol bid, lisinopril, hctz.- patient was on the phone during BP checks -> I had to notify patient she needed to be off of the phone for MA to obtain accurate BP measure.R hand: numbness in all 5 fingers. Started in 2023. Denies pain. Has had hx of TIAs, dx'd at [facility]. Denies alcohol use, last use 07/2024.Once I concluded my visit, I told pt I would take her over to Adult Medicine window to schedule with Podiatry, also nurse BP check and give instructions to schedule with Optometry. The patient then brought up [place] paperwork that she needed to have signed again to release her to work - I explained I am not familiar with this process. I also explained that this was the end of the visit, and she would need to return for a f/up visit to discuss further. Patient became upset and tearful, pulled out her papers. I said I would check one of the nurses and return -> nurse okayed having pt stop by her office to discuss the paperwork -> I returned to pt room and advised that I could take her over to one of the nurses to read through the paperwork together and determine next steps -> pt was on the phone, then hung up and said she didn't need help to schedule f/up appts and left. annual exam Currently pregna nt: no. : 4. Parity: Term: 2. induced: 2. Livin. The client states using hysterectomy for control. Patient's menses is absent. Negative for: breast discharge, breast lump(s) and breast pain. Positive for: breast self exam. Pertinent negatives include anxiety, depression and vaginal discharge. Client does not take calcium. Client does not take Vitamin D. Client does not take multivitamins. Client does not take Folic acid. The client does use tobacco. Tobacco cessation has been discussed. The client does not drink alcohol. hx 49 y.o. h ere Annual. S/p TLH/BS/Cysto on 09/02/16 for AUB-LFTVD x 2, EAB x 2Remote h/o STI, Last Pap 03/01/2014 NIL/neg, no longer indicatedLast MMG 03/2020 [facility] BIRADS 2 benign, due yearlyNo C-Scope Hx, dues/p COVID vaccines Follow up The patient is a 48-year-old female who presents to the clinic for a follow-up visit.The patient's blood pressure today on triage at the office is 129/90 mmHg. She complains of nodules in the throat and she needs to clear the throat all the time. She wonders if that might be due to the thyroid nodule.She has a problem recently in the vaginal region and wonders if that might be due to infection.She is due for a mammogram.She is due for a colonoscopy and requested a Cologuard. F/U Pt went to on 04/10 for elevated BPs and mutliple pains.BP well controlled now. Pt taking all medications prescribed for BP.Pt still has posterior R shoulder pain. 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 Worse with vacuuming. Blood pressure pt states BP was elevated at work yesterday so she was sent home from [id number]/100s per patientstates taking her medications as prescribed but does need refillspt crying; states she also has right shoulder pain, headache, toothache on left side, and hot flashes that keep her from sleeping at nightprescribed effexor to help with those symptoms; pt unclear if she is taking it or notalso notes "something wrong with my thyroid endocrinology referral placed by PCP HTN Pt still has HTN , has some headache and dizziness (julian when turning in bed or standing from sitting or bending forward) tooth pain week upper left tooth pain with abscess, feels swellign in gums, needs to see dental hypertension Associated sympt oms include transient weakness. Pertinent negatives include chest pain, headache and nausea. Additional information: Pt DCd from ER after last visit (headache, numbness/weakness/tingling on R side of body, dizziness). Headache and dizziness improved. Still has tingling and weakness in R UE and LE. hosp f/u August 18 - went t o [facility] ER and was admitted for TIA/CVA. Admitted for 3 days. Had thyroid US done. Did not need PT/OT. Sent home with heart monitor for irregular heartbeat. F/u with 1 specialists on discharge - pt unsure which specialty. Did not get any new medications. Did not f/u with specialist after initial appt. Was given vitamin D, lisinopril, HCTZ, atorvastatin, aspirin and several other medicines, pt unsure what. 2 weeks ago - felt dizzy at work, had BP checked, SBP > 200. Went to but declined transfer to ER.now: (past 2 weeks)dizzy persistently - feels like she's about to fall and weak. doesn't matter what position she's in. R sided tingling (UE and LE)mouth numbnessPt has not taken medication in 3 days (except for lisinopril)Did not take lisinopril today. annual exam The patient stat es she uses hysterectomy for control. Her menses is absent. Negative for: breast discharge, breast lump(s) and breast pain. Positive for: breast self exam.Postmenopausal. Menopausal symptoms positive for: hot flashes and night sweats. Pertinent negatives include anxiety, depression and vaginal discharge. She does not take calcium. She does not take Vitamin D. She does not take multivitamins. She does not take Folic acid. The patient does use tobacco. Tobacco cessation has been discussed. She does not drink alcohol. 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 Wants to get Vaccines for work and TB Skin test. c/o vaginal discharge for many months, possibly since November. Had new partner then and has felt icky' down there. c/o urinary frequency unknown amount of time. 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 Started taking Gabapentin and has greatly helped with menopausal s/s.c/o very bothersome hot flashes, night sweats, loss of concentration. c/o CARMICHAEL. BP extremely elevated today but saw PCP today prior to this appt. Plans to f/u again with PCP in two weeks for BP checkS/p TLH/BS/Cysto on 09/02/16 for AUB-LFTVD x 2, EAB x 2Remote h/o STI, desries testingLast Pap 03/01/2014 NIL/neg, no longer indicatedLast MMG 09/2018 [facility] BIRADS 1 negative, due, scheduled 12/26/2019 Menopausal symptoms The problem is improving. Associated symptoms include hot flashes, mood swings and night sweats. hypertension Pertinent negati ves include chest pain, claudication, dyspnea, epistaxis, irregular heartbeat/palpitations and tinnitus. Ankle pain Onset: 18 months ago. It occurs constantly. Location: right ankle. The pain is aching and sharp. Context: there is an injury. The pain is aggravated by movement, walking and standing. The pain is relieved by pain/RX meds. Associated symptoms include decreased mobility, joint tenderness and swelling. 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 c/o CARMICHAEL. BP extremely elevated today. Needs refills of HTN medications.wants HT.S/p TLH/BS/Cysto on 09/02/16 for AUB-LFTVD x 2, EAB x 2Remote h/o STI, desries testingLast Pap 03/01/2014 NIL/neg, no longer indicatedLast MMG 09/2018 [facility] BIRADS 1 negative, due annual exam The patient stat es she uses hysterectomy for control. Her menses is absent. Negative for: breast discharge, breast lump(s) and breast pain. Positive for: breast self exam. Menopausal symptoms positive for: hot flashes, insomnia, night sweats and vaginal dryness. Pertinent negatives include anxiety, depression and vaginal discharge. She does not take calcium. She does not take Vitamin D. She does not take multivitamins. She does not take Folic acid. The patient does use tobacco. Tobacco cessation has been discussed. She does not drink alcohol. tooth infection patient was cont acted,states she thinks she has a tooth infectionstates was seeing a dentist downtown--may need it pulled,states they would not give her antibiotics unless she came inapparently not going to dentists here, advised her we have dentists here at [facility] has chronic ankle pain--needs her gabapentindid not see any records from the surgeon/nor pain management --who initially took care of herskvng states the surgeon was off [place]/and [place]--Workmans comp--[facility] Dr Willis??her produce team member sent her to the pain management--does not remember whoonce it was settled, came here for the medication--need the recordstooth infections--tolerates [id number] minutes spent with patient,chart discussionshe is scheduled in the medicine amoxacillin for now also--see her dentist med eval Internal Medicin e visit type- telephone medicineTelehealth Phone Conversation with the Patient due to the COVID-19 pandemic. Patient has given verbal consent for this medical [id number] yo female w/ a pmh of htn that comes for med eval. During last visit, started Lisinopril-hctz for htn. At the present denied edema, chest pain and sob. Pt also had a left ankle fracture 12/2018 s/p surgery. Fu ortho and PT. Relevant PMHhtn Relevant prior hospitalizationno Medications- as medication reconciliationRelevant surgery history- surgery 12/2018 for left ankle fracture. Relevant allergy- NKDA Family history- negSocial history- 04/16 ppd/ no etoh ROS- complete as above note Physical exam- complete as above note Images- all images where review (including radiology reading and by me interpretation) Procedures- review Lab- Evaluate all lab results. Medication reconciliation- complete as above nota Chart review including prior notes, speciality notes/recommendations, laboratory result, images Discuss assessments and plan to patient Assessment and PlanHTN- hctz-lisinopril. low sodium dietleft ankle fracture- gabapentin Stay at home. Clean and disinfect frequently touched surfaces and objects. Includes cleaning hands, tables, countertops, light switches, doorknobs, and cabinet handles.Call medical center or [phone] if SOB, cough and fever. Time chart review-10 min/ Time with patient- 10 min/ Total time- 20 min headaches/ blood pressure 43 yo female w/ a pmh of htn that comes for med eval. Multiple EDs since 6 month for htn 2/2 to non compliant to meds. Denied chest pain, palpitations, SOB. Said to have a high sodium diet. Pt also had a left ankle fracture 12/2018 s/p surgery. Followed by ortho and PT. Relevant PMHhtn Relevant prior hospitalizationno Medications- as medication reconciliationRelevant surgery history- surgery 12/2018 for left ankle fracture. Relevant allergy- NKDA Family history- negSocial history- 04/16 ppd/ no etoh ROS- complete as above note Physical exam- complete as above note Images- all images where review (including radiology reading and by me interpretation) Procedures- review Lab- Evaluate all lab results. Medication reconciliation- complete as above nota Chart review including prior notes, speciality notes/recommendations, laboratory result, images Discuss assessments and plan to patient Assessment and PlanHTN- start hctz-lisinopril. .order metabolic panel. low sodium dietgen medbasic labs including a1c and lipid panel annual [employer] 43 y.o. h ere for annual GYNrecent intercourse with partner and condom broke; has noted white discharge with +odor since; no irritation/pruritisdesires STI screenstopped antihypertensive medication - no CARMICHAEL/CP/SOBgynhx:S/p TLH/BS/Cysto on 09/02/16 for AUB-LFTVD x 2, EAB x 2Remote h/o STILast Pap 03/01/2014 NIL/neg, no longer indicatedLast MMG 01/17/16, breast bx recommended, has not f/u as indicated; pt scheduled breast MRI and no show x 2 retreat 41 y.o. h ere for repeat treatment. Pt states that she tried to take treatment for trich but could not get pills down. Here to discuss treatment options. S/p TLH/BS/Cysto on 09/02/16 for AUB-LFTVD x 2, EAB x 2LMP - TLH/BSRemote h/o STILast Pap 03/01/2014 NIL/neg, no longer indicatedLast MMG 01/17/16, breast bx recommended, has not f/u as indicated; pt scheduled breast MRI and no showed again, encouraged to reschedule post-op 41 y.o. h ere for post-op f/u. S/p TLH/BS/Cysto on 09/02/16 for AUB-L, transfused prior to surgery for severe chronic anemia. Pt was seen 09/17/16 for worsening pain, had pelvic fluid collection on CT A/P drained by IR, fluid c/w seroma. Has since had drain removed, feeling well, no c/o. Has returned to workTaking FeSO4, only taking three times a week.FTVD x 2, EAB x 2LMP - TLH/BSRemote h/o STILast Pap 03/01/2014 NIL/neg, no longer indicatedLast MMG 01/17/16, breast bx recommended, has not f/u as indicated; pt scheduled breast MRI and no showed again, encouraged to reschedule post op 41 y.o. h ere for post-op f/u. S/p TLH/BS/Cysto on 09/02/16 for AUB-L, transfused prior to surgery for severe chronic anemia. Pt was seen 09/17/16 for worsening pain, had pelvic fluid collection on CT A/P drained by IR, fluid c/w seroma. Has since had drain removed, feeling well, no c/o. Desires to return to work.Taking FeSO4, only taking three times a week.FTVD x 2, EAB x 2LMP - TLH/BSRemote h/o STILast Pap 03/01/2014 NIL/neg, no longer indicatedLast MMG 01/17/16, breast bx recommended, has not f/u as indicated; pt scheduling breast MRI, encouraged to f/u pelvic pain 41 y.o. h ere for post-op f/u. S/p TLH/BS/Cysto on 09/02/16 for AUB-L, transfused prior to surgery for severe chronic anemia. Pt notes worsening pain x 1 week, subjective fever at home, maybe a small amount of foul smelling d/c and light pink spotting. Has been constipated despite aggressive bowel regimen. Had small BM today with laxatives, but still feels severely constipated. No urinary issues. No n/v. Taking FeSO4, only taking three times a week.FTVD x 2, EAB x 2LMP - TLH/BSRemote h/o STILast Pap 03/01/2014 NIL/neg, no longer indicatedLast MMG 01/17/16, breast bx recommended, has not f/u as indicated post ob 40 y.o. h ere for post-op f/u. S/p Partial hysteroscopic myomectomy on 02/27/16. Procedure discontinued prior to completion due to fluid deficit limit. No complications post-operatively, still with persistent light bleeding, changes light pad 4-6 times per day. Plan was to complete myomectomy and proceed with Novasure ablation, pt unsure if desires return to OR for this procedure, feels she may be satisfied with current result.Front tooth dislodged during LMA placement. 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 Saw dentist yesterday, unclear about treatment plan. Desires to return to work SHANI. Still contemplating hysterectomy. Taking FeSO4, only taking three times a week.FTVD x 2, EAB x 2[facility]en in [facility] 02/23/16 and received 2uPRBC for hgb 5.9LMP irregular since DMPA injectionUS 12/2015: 11 x 6 x 9 cm uterus, multiple small fibroids including one submucous, normal ovariesEMB 05/06/2015 scan fragments of acutely inflamed inactive endometrium with extensive breakdown. no evidence of hyperplasia or malignancy.Remote h/o STILast Pap 03/01/2014 NIL/neg, due 02/2019Last MMG 01/17/16, breast bxMOC - BTL abnormal bloodpressure The sympt oms began 6 months ago and generally lasts 6 Months. The symptoms are reported as being moderate. The symptoms occur randomly. The location is has been to [facility]--[facility]--[facility] Aggravating factors include headaches with elevated BP. Relieving factors include tylenol/ibuprofen. She states the symptoms are chronic and are fairly controlled. Patient has been anemic--2012--hb was down to 3--transfused 11/12/15--excessive uterine bleeding since 2012--transfused 8-10 units in past. abnormal bloodpressu re (comments) PMH--noneALLERGIES--keflexSXHX--no tobacco no etoh no substancesmeds--iron pillsinfections--[id number] el abpap done--fibrois uteruscolonoscopy--denies surgery consult 40 y.o. h ere for surgical consultation. Has been having AUB since 2012. Menses heavy, bleeding persistent throughout month. Improved flow with DMPA initiated 12/09/15. Given rx for FeSO4, only taking three times a week. Still changing pad every 30 mins to hour.FTVD x 2, EAB x 2Patient was seen in ER at [facility]. Diagnosed for Anemia and AUB. She reports received 2 units of blood in hospital that bumped upto 8 per pt.Reports she had EMB done at Hospital. C/o continued heavy bleeding, frequency, occasional malaise and dizziness. Improved after blood transfusion.LMP persistent now on DMPA, heavy, clots, approx. 2 pads per hour. Hx of fibroids, reports pelvic US done at [facility] 03/2014 enlarged myomatous (approx.3 fibroids) uterus, normal appearing ovariesRepeat US 12/2015: 11 x 6 x 9 cm uterus, multiple small fibroids including one submucous, normal ovariesEMB 05/06/2015 scan fragments of acutely inflamed inactive endometrium with extensive breakdown. no evidence of hyperplasia or malignancy.Remote h/o STILast Pap 03/01/2014 NIL/neg, due 02/2019Last MMG 01/17/16, [facility] [place] [facility] f/u abnormal bleeding 40 y.o. here for ER f/u on 11/12/15. Patient was seen in ER at [facility]. Diagnosed for Anemia and AUB. She reports received 2 units of blood in hospital due to Hbg level of 3 that bumped upto 8 per pt. Bleeding recently restarted . Did not receive DMPA in ER. Reports she had EMB done at Hospital. c/o continued heavy bleeding, frequency, occasional malaise and dizziness. Improved after blood transfusion.LMP 11/12/15 heavy, clots, approx. 2 pads per hour. EAB x2, FTVD x2 hx of fibroids, reports pelvic US done at [facility] 03/2014 enlarged myomatous (approx.3 fibroids) uterus, normal appearing ovariesLast EMB 05/06/2015 scan fragments of acutely inflamed inactive endometrium with extensive breakdown. no evidence of hyperplasia or malignancy.SASTI remote hx, desires testingLast Pap 03/01/2014 NIL, HPV neg, due 02/2019Last MMG many years ago, due. Wants to go to [facility] BTL Functional Status Date Functional Assessmen t No Information Instructions Date Instruction Additional Infor mation Impression/Plan Related to Presb yopia Impression/Plan Related to Age-r elated nuclear cataract, bilateral Impression/Plan Related to Myopi a, bilateral Recommend debrox Related to Impa cted cerumen, bilateral will review previous records, follow up pending review will likely need barium swallow and GI consult Related to Difficulty in swallowing post infectious vs a llergic vs post nasal drip vs jessie inhibitor induced starting antihistamine, if persistent plan to switch anti-hypertensive Related to Cough Follow up with NSGY/ previous PCP for results from nerve conduction study for plan moving forward Related to Paresthesia of skin Keep upcoming endocr inology appointment Related to Other specified disorders of thyroid recommend loratadine Related to Allergic rhinitis - start carvedilol 1 2.5 bid continue/refill hctz 25, lisinopril 40 - follow up in 1 month bring medications to appointment Related to HTN - vitamin labs- refer [facility] Related to Paresthesia of skin - Encouraged to foll ow instructions in kit and to look up instructions online Related to Encounter for screening for cancer of colon - start carvedilol 1 2.5 bid continue/refill hctz 25, lisinopril 40 - nurse BP check in 3w (unclear if pt will schedule on her own) Related to HTN Prescribed activity/ exercise education Related to Body mass index [BMI] 23.0-23.9, adult Dietary management e ducation, guidance, and counseling Related to Body mass index [BMI] 23.0-23.9, adult - sent [facility] paperwor k for scanning into chart Related to Intercostal pain - continue current r egimen until 10/24, then start lisinopril 40mg, continue HCTZ 25mg and carvedilol 6.25mg BID- clinic f/up visit in 2 mosFor BP difference between arms:- refer to [facility] ECHO- refer to [facility] Cardiology Related to HTN Prescribed activity/ exercise education Related to Body mass index [BMI] 23.0-23.9, adult - increase to lisino pril 40mg continue hctz, carvedilol- nurse BP check in 2w- future clinic visit/in lab letter: discuss add aspirin 81mg given pt-reported hx TIA Related to HTN - instructed pt to [facility] for same-day appt, to fill out FMLA paperwork Related to Intercostal pain - discuss screening options in lab letter Related to Encounter for screening for cancer of colon Prescribed activity/ exercise education Related to Body mass index [BMI] 23.0-23.9, adult flagyl 500mg twice a day for 7 daysno alcohol while takingavoid scented soaps on or around vaginano douching Related to Acute vaginitis Prescribed activity/ exercise education Related to Body mass index [BMI] 34.0-34.9, adult Prescribed activity/ exercise education Related to Body mass index [BMI] 40.0-44.9, adult Prescribed activity/ exercise education Related to Body mass index [BMI] 22.0-22.9, adult New medication: napr oxen. Do stretches attached.Wear wrist brace DAILY, including at night if you have symptoms at night. Related to Pain in right wrist Prescribed activity/ exercise education Related to Body mass index [BMI] 22.0-22.9, adult Prescribed activity/ exercise education Related to Body mass index [BMI] 21.0-21.9, adult Increase fruits, veg etables and fiber in diet Related to Encntr for obstetrics and gynecology professor exam (general) (routine) w/o abn findings Increase daily activity Related to Encntr for obstetrics and gynecology professor exam (general) (routine) w/o abn findings Gabapentin for chron ic painStart arthritis med - Ortho and PT Related to Pain in right ankle and joints of right foot Increase Lisinopril- HCTZ to 20-25Return 6 weeks for BP checkLabs today Related to Hypertension Prescribed activity/ exercise education Related to Body mass index (BMI) 21.0-21.9, adult Stop smoking. Related to Hyper tension Follow a low sodium diet. Relate d to Hypertension Check breasts monthly Related to Encounter for screening mammogram for cancer of breast Follow up with PCP/Internal Medi cine Related to Hypertension Enc to follow Lifest yle Changes/Modifications Related to Symptoms such as flushing, sleeplessness, headache, lack of concentration, associated with natural (age-related) menopause Screening mammogram once per yea r Related to Encounter for screening mammogram for cancer of breast Increase activity. Related to Hy pertension Lifestyle education regarding di et Related to Body mass index (BMI) 21.0-21.9, adult Prescribed activity/ exercise education Related to Body mass index (BMI) 20.0-20.9, adult Lifestyle education regarding di et Related to Body mass index (BMI) 20.0-20.9, adult Use condoms for prev ention of sexually transmitted infections Related to Trichomonal vulvovaginitis Use condoms for prev ention of sexually transmitted infections Related to Encntr screen for infections w sexl mode of transmiss Return to ER for sev ere persistent abdominal pain, fever, nausea, vomiting Related to Encntr for f/u exam aft trtmt for cond oth than malig neoplm Return to ER for sev ere persistent abdominal pain, fever, nausea, vomiting Related to Encntr for f/u exam aft trtmt for cond oth than malig neopl Return to ER for sev ere persistent abdominal pain, fever, nausea, vomiting Related to Encntr for f/u exam aft trtmt for cond oth than malrichelle mendiolapl Call or go to ER for heavy bleeding soaking more than 2 heavy pads per hour Related to Leiomyoma of uterus Return to ER for sev ere persistent abdominal pain, fever, nausea, vomiting Related to Leiomyoma of uterus Call or go to ER for heavy bleeding soaking more than 2 heavy pads per hour Related to Abnormal uterine bleeding Next Depo due 02/23-03/09 Relate d to Abnormal uterine bleeding Use back up method x7 days Relat ed to Abnormal uterine bleeding Use Condoms for STI prevention R elated to Encounter for STI screening Perform monthly breast self exam s. Related to Encounter for screening mammogram for cancer of breast Increase physical activity. Rela aminah to Encounter for screening mammogram for cancer of breast Assessments Type Assessment Date No Information Patient Care Teams Name Effective Dates (start - stop) Status Members No Information
[2025-02-04 05:35] VITALS: BP 186/109; PULSE 96; RESP 14; TEMP 36.7; O2SAT 99
--- NOTE | 2025-02-04 05:56 | ED.ANXIETY ---
HPI - Anxiety General Chief Complaint: Anxiety Stated Complaint: anxiety Time Seen by Provider: 02/04/25 05:41 Source: patient and EMS Mode of arrival: EMS Limitations: no limitations History of Present Illness HPI narrative: This is a 49-year-old female with history of hypertension, anxiety who presents to the ED for hyperventilation and anxiety. Patient states that she went to a family friend's house for Halloween constitution party and had a few drinks. She then tried to drive herself home but got lost so she pulled over to go sleep. She woke up shortly after and put her address into her GPS and began to driveway but when doing so, she was pulled over. She was apparently taken to the police station at that point and was calling for a ride when she began to have a panic attack with hyperventilation. EMS was called at that time. Patient reports that she does feel better at this time. She was apparently stuck in a tightly closed area and she does have a history of claustrophobia and severe anxiety related to that. She reports a mild headache at this time but it feels like her normal headaches. Review of Systems Review of Systems: Gen.: Denies fevers or chills Eyes: Denies eye pain or visual change ENT: Denies congestion Respiratory: Denies shortness of breath or cough CV: Denies chest pain or palpitations GI: Denies abdominal pain nausea, emesis or diarrhea denies burning, urgency, frequency or hematuria Musculoskeletal: Denies back pain or muscle pain Neuro: Denies numbness, tingling, weakness or focal weakness Skin: Denies rash Except as documented, all other systems reviewed and negative Exam Narrative: APPEARANCE: No acute distress, nontoxic, resting in bed Eyes: PERRL. HEENT: Normocephalic, atraumatic, OMM RESPIRATORY: No respiratory distress CARDIOVASCULAR: Appears well perfused ABDOMINAL: Nondistended MUSCULOSKELETAl: Moves all extremities. No obvious deformities NEURO: Awake and alert. No focal deficits SKIN:: Warm, dry. No rashes lesions or abrasions PSYCHIATRIC: Normal affect/mood, Course Vital Signs Vital signs: Vital Signs Temperature 98.1 F 02/04/25 05:35 Pulse Rate 96 02/04/25 05:35 Respiratory Rate 14 02/04/25 05:35 Blood Pressure 186/109 H 02/04/25 05:35 Pulse Oximetry 99 02/04/25 05:35 Temperature 98.1 F 02/04/25 05:35 Pulse Rate 96 02/04/25 05:35 Respiratory Rate 14 02/04/25 05:35 Blood Pressure 186/109 H 02/04/25 05:35 Pulse Oximetry 99 02/04/25 05:35 MDM - Anxiety MDM Narrative Medical decision making narrative: 49-year-old female Presenting for hyperventilation and anxiety. On initial evaluation patient was in no acute distress afebrile, hemodynamic stable. Hypertensive to 180s/100s. She had a nonfocal neuro exam. Heart and lungs clear. Patient is otherwise doing well at this time. She has a history of hypertension and is due to take her morning antihypertensives. Additional workup is not indicated at this time. She was advised to follow-up with her PCP in the next week for re-evaluation. Patient was agreeable to this plan. Given strict return precautions. She has a friend here who is able to take her home. Differential Diagnosis Differential diagnosis: Likely hyperventilation, panic disorder and acute anxiety Discharge Plan Discharge Clinical Impression: Acute anxiety Hypertension Qualifiers: Hypertension type: unspecified Qualified Code(s): I10 - Essential (primary) hypertension Patient Disposition: Home Condition: Stable Instructions: Antibiotic Form, Hypertension (ED), Anxiety (ED) Additional Instructions: Follow-up with your PCP in the next week for re-evaluation for further discussion of your anti anxiety medications and her blood pressure medications. Return to the ED for any new or worsening symptoms. Patient Language: Telugu
--- OUTSIDE RECORDS SUMMARY | 2025-02-04 06:11 | XMS_ITS | Encounter Summary ---
Author Organization [email or web address] Address 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
--- OUTSIDE RECORDS SUMMARY | 2025-02-04 06:11 | XMS_ITS | Encounter Summary ---
Author Organization [employer] Address [address] [place] [address] Care Team Providers Care Straddle Truck Operator Name Role Phone Wanda Carreon MD Primary Care Provider [phone] Encounter Details Date Type Department Care Team (Latest Contact Info) Description 02/06/1999 Outpatient Historical HIS 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
--- OUTSIDE RECORDS SUMMARY | 2025-02-04 06:11 | XMS_ITS | Encounter Summary ---
Author Organization [employer] Address 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
--- OUTSIDE RECORDS SUMMARY | 2025-02-04 06:11 | XMS_ITS | Encounter Summary ---
Author Organization [employer] Address [address] [place] [address] Care Team Providers Care Enzyme Chemist Name Role Phone Wanda Carreon MD Primary Care Provider [phone] Encounter Details Date Type Department Care Team (Latest Contact Info) Description 06/03/2004 Outpatient Historical HIS [facility] Juventino Mac MD [address] [place] [address] JOINT PAIN-L/LEG (Primary Dx) Social History Tobacco Use Types Packs/Day Years Used Date Smoking Tobacco: Never Assessed Comments Unknown Sex and Gender Information Value Date Recorded Sex Assigned at Not on file Legal Sex Female 3:18 AM DAY WORKER Gender Identity Not on file Sexual Orientation Not on file documented as of this encounter Plan of Treatment Not on file documented as of this encounter Visit Diagnoses Diagnosis Pain in joint, lower leg- Primary documented in this encounter Care Teams Enzyme Chemist Relationship Specialty Start Date End Date Wanda Carreon MD PCP - General Internal Medicine 11/08/15 12/31/16 documented as of this encounter
--- OUTSIDE RECORDS SUMMARY | 2025-02-04 06:11 | XMS_ITS | Encounter Summary ---
Author Organization [employer] Address [address] [place] [address] Care Team Providers Care Surveyor Mine Name Role Phone Wanda Carreon MD Primary Care Provider [phone] Encounter Details Date Type Department Care Team (Late st Contact Info) Description 06/14/2004 Emergency HIS [facility] Sabrina oGnzales MD NO ADDRESS ON FILE Er, Authorized P NO ADDRESS ON FILE CONTUSION FACE/SCALP/NCK (Primary Dx) Social History Tobacco Use Types Packs/Day Years Used Date Smoking Tobacco: Never Assessed Comments Unknown Sex and Gender Information Value Date Recorded Sex Assigned at Not on file Legal Sex Female 3:18 AM HISTOPATHOLOGIST Gender Identity Not on file Sexual Orientation Not on file documented as of this encounter Plan of Treatment Not on file documented as of this encounter Visit Diagnoses Diagnosis Contusion of face, scalp, and neck except eye(s)- Primary documented in this encounter Care Teams Surveyor Mine Relationship Specialty Start Date End Date Wanda Carreon MD PCP - General Internal Medicine 11/08/15 12/31/16 documented as of this encounter
--- OUTSIDE RECORDS SUMMARY | 2025-02-04 06:11 | XMS_ITS | Clinical Summary ---
Author Organization [employer] Address [address] [place] [address] Care Team Providers Care Yarn Man Name Role Phone Unavailable Primary Care Provider Unavailabl e Allergies Active Allergy Reactions Criticality Noted Date Comments Cephalexin Itching Low 04/01/2015 Medications multivitamins with iron Tablet Take 1 Tablet by mouth daily. Active ferrous sulfate 325 mg (65 mg iron) tablet Take 1 Tablet (325 mg) by mouth 2 times daily with meals. 30 Tablet 0 11/12/2015 Active hydroCHLOROthia zide (MICROZIDE) 12.5 mg capsule Take 1 Capsule (12.5 mg) by mouth daily. 30 Capsule 01/29/2018 Active ibuprofen (MOTRIN) 600 mg tablet Take 1 Tablet (600 mg) by mouth every 8 hours as needed for Pain. 20 Tablet 01/29/2018 Active amLODIPine (NORVASC) 5 mg tablet Take 5 mg by mouth daily. 04/26/2020 Active Active Problems Problem Noted Date Diagnosed Date Iron deficiency anemia due to chronic blood loss 11/12/2015 Pain, dental 11/12/2015 Symptomatic anemia 11/12/2015 Weakness 11/12/2015 Vaginal bleeding 11/12/2015 Hypercalcemia 11/12/2015 Family History Medical History Relation Name Comments Hypertension Mother Relation Name Status Comments Mother Social History Tobacco Use Types Packs/Day Years Used Date Smoking Tobacco: Every Day Cigarettes Passive Smoke Exposure: Never Smokeless Tobacco: Never Tobacco Cessation:Ready to Q uit: Not Asked; Counseling Given: Not Answered Alcohol Use Standard Drinks/Week Comments No 0 (1 standard drink = 0.6 oz pur e alcohol) Comments No Sex and Gender Information Value Date Recorded Sex Assigned at Not on file Legal Sex Female 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 MIXER Gender Identity Not on file Sexual Orientation Not on file Last Filed Vital Signs Vital Sign Reading Time Taken Comments Blood Pressure 177/93 04/17/2022 3:58 PM GUNITE MIXER Pulse 121 04/02/2022 1:33 AM GUNITE MIXER Temperature 37.3 C (99.2 F) 04/17/2022 3:58 PM GUNITE MIXER Respiratory Rate 16 04/17/2022 3:58 PM GUNITE MIXER Oxygen Saturation 100% 04/17/2022 3:58 PM GUNITE MIXER Inhaled Oxygen Concentration - - Weight 45.4 kg (100 lb) 04/17/2022 3:58 PM GUNITE MIXER Height 147.3 cm (4' 10) 04/01/2022 10:16 PM GUNITE MIXER Body Mass Index 20.9 04/01/2022 10:16 PM GUNITE MIXER Plan of Treatment Health Maintenance Due Date Last Done Comments HEPATITIS B VACCINES (1 of 3 - 19+ 3-dose series) 1992 HPV/Cotest (21-29) 1994 CERVICAL CANCER SCREENING 07/21/2003 HPV/Cotest (30-65) 07/21/2003 PAP SMEAR 07/21/2003 COLORECTAL SCREENING 2018 Colorectal Cancer Screening 2018 FIT-DNA Q 3 years 2018 FIT/FOBT Q 1 year 2018 Flex Sig/CT Colonography Q 5 years 2018 BREAST CANCER SCREENING 03/12/2021 03/12/20, 09/14/2018, 03/19/2017, Additional history exists ZOSTER VACCINE (1 of 2) 07/21/2023 INFLUENZA VACCINE (#1) 2024 02/26/2015 DTAP/TDAP/TD VACCINES (2 - T d or Tdap) 11/29/2029 11/30/2019 Insurance [facility] [id number] Advance Directives For more information, please contact: [phone] * Full Code (Latest Code Status on File) Date Activated Date Inactivated Comments 11/12/2015 3:47 AM 11/12/2015 9:28 PM * Full Code Date Activated Date Inactivated Comments 11/12/2015 3:14 AM 11/12/2015 3:47 AM
--- OUTSIDE RECORDS SUMMARY | 2025-02-04 06:11 | XMS_ITS | Encounter Summary ---
Author Organization [employer] Address [address] [place] [address] Care Team Providers Care Interpersonal Communications Professor Name Role Phone Wanda Carreon MD Primary Care Provider [phone] Encounter Details Date Type Department Care Team (Latest Contact Info) Description 06/04/[address] 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
--- OUTSIDE RECORDS SUMMARY | 2025-02-04 06:11 | XMS_ITS | Encounter Summary ---
Author Organization [employer] Address 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
--- OUTSIDE RECORDS SUMMARY | 2025-02-04 06:11 | XMS_ITS | Encounter Summary ---
Author Organization [employer] Address 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
--- OUTSIDE RECORDS SUMMARY | 2025-02-04 06:11 | XMS_ITS | Encounter Summary ---
Author Organization [employer] Address 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
--- OUTSIDE RECORDS SUMMARY | 2025-02-04 06:11 | XMS_ITS | Clinical Summary ---
Author Organization [facility] Address [address] [place] [address] Care Team Providers Care Vision Rehabilitation Therapist Name Role Phone [facility] Primary Care Provi maya No, Physician Unavailable [facility] Unavailable [phone] Allergies Active Allergy Reactions Criticality Noted Date Comments Cephalexin Itching Reaction: ITCHING, , Reaction: Itching, Medications oxyCODONE-aceta minophen (PERCOCET) 5-325 mg per tabletIndicatio ns:Pain Take 1 tablet by mouth every 4 (four) hours as needed for pain Active multivitamin with iron tablet Take 1 tablet by mouth daily Active gabapentin (NEURONTIN) 300 mg capsule TAKE 1 CAPSULE BY MOUTH THREE TIMES A DAY 10/09/2019 Active cyclobenzaprine (FLEXERIL) 10 mg tablet Take 1 tablet (10 mg total) by mouth every 8 (eight) hours as needed for muscle spasms 12 tablet 11/30/2019 Active ibuprofen (ADVIL,MOTRIN) 800 mg tablet Take 1 tablet (800 mg total) by mouth 3 (three) times a day as needed for pain Take with food. 30 tablet 11/30/2019 Active lisinopril-hydr oCHLOROthiazide (ZESTORETIC) 20-25 mg per tablet Take 1 tablet by mouth daily 04/26/2020 Active amoxicillin (amoxicillin) 500 mg tablet/capsule Take 1 tablet by mouth every 8 hours 10/09/2019 Active acetaminophen ER (TYLENOL) 650 mg 8 hr tablet Take 2 tablets by mouth every 8 hours 11/03/2019 Active cyclobenzaprine (FLEXERIL) 10 mg tablet Take 1 tablet (10 mg total) by mouth nightly as needed for muscle spasms 12 tablet 06/13/2020 Active prochlorperazin e (COMPAZINE) 10 mg tablet Take 1 tablet (10 mg total) by mouth every 6 (six) hours as needed for nausea or vomiting for up to 7 days 10 tablet 11/11/2020 Active amLODIPine (NORVASC) 10 mg tablet Take 1 tablet (10 mg total) by mouth daily 30 tablet 07/25/2023 Active lisinopril-hydr oCHLOROthiazide (ZESTORETIC) 20-25 mg per tabletIndicatio ns:hypertension Take 1 tablet by mouth daily 30 tablet 07/25/2023 Active naproxen (NAPROSYN) 375 mg tablet Take 1 tablet (375 mg total) by mouth 2 (two) times a day with meals for 12 doses 12 tablet 07/25/2023 Active Active Problems Problem Noted Date Diagnosed Date Contusion of right hand 08/25/2018 Abnormal mammogram 12/02/2016 Pelvic abscess in female 09/25/2016 Hypertension 12/30/2015 Overview (07/17/2016): Hypertension Anemia 12/30/2015 Overview (07/17/2016): Anemia Hypercalcemia 11/12/2015 Iron deficiency anemia due to chronic blood loss 11/12/2015 Pain, dental 11/12/2015 Vaginal bleeding 11/12/2015 Weakness 11/12/2015 Symptomatic anemia 11/12/2015 Immunizations Immunization Administration Dates Next Due Tdap 11/30/2019 Surgical History Surgery Date Site/Laterality Comments HYSTERECTOMY Medical History Medical History Date Comments Anemia due to blood loss Anemia due to hemorrage blood loss; Comments: 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 Gender Identity Not on file Sexual Orientation Not on file Obstetrics History Last Filed Vital Signs Vital Sign Reading Time Taken Comments Blood Pressure 172/103 07/25/2023 6:37 PM CDT Pulse 75 07/25/2023 6:27 PM CDT Temperature 36.9 C (98.4 F) 07/25/2023 2:52 PM CDT Respiratory Rate 16 07/25/2023 2:52 PM CDT Oxygen Saturation 97% 07/25/2023 6:27 PM CDT Inhaled Oxygen Concentration - - Weight 46.7 kg (103 lb) 11/11/2020 11:52 AM CDT Height 144.8 cm (4' 9) 11/11/2020 11:52 AM CDT Body Mass Index 22.29 11/11/2020 11:52 AM CDT Plan of Treatment Health Maintenance Due Date Last Done Comments Colon Cancer Screening-Colonoscopy 1975 Depression Screening 1975 Hepatitis C Screening 1975 Regular Well Visit/Exam 18-64 07/21/1991 Pneumococcal vaccine <65 (1 of 2 - PCV) 1992 Breast Cancer Screening-Mammogram 03/12/2021 03/12/2020, 03/12/2020, 09/14/2018, Additional history exists Zoster Vaccine (1 of 2) 07/21/2023 Influenza Vaccine (#1) 2024 08/01/2020 DTaP/Tdap/Td Vaccine (2 - Td or Tdap) 11/29/2029 11/30/2019 Hepatitis B Screening Completed 07/10/2020 Procedures Procedure Name Priority Date/Time Associated Diagnosis Comments SCREENING MAMMOGRAM BILATERAL W LUCIO Schedule Routine, Read Routine (OP Routine) 03/12/2020 3:36 PM RN TESTING Encounter for screening mammogram for malignant neoplasm of breast from Last 3 Months or Most Recently Relevant to Health Maintenance Results * Screening Mammogram Bilateral W Lucio (03/12/2020 3:36 PM RN TESTING) Anatomical Region Laterality Modality Breast Bilateral Mammography Narrative 03/13/2020 9:32 AM RN TESTING Mammogram Technique: Bilateral Digital Breast Tomosynthesis, Bilateral C-view 2D Screening mammogram. Views obtained: bilateral craniocaudal and bilateral mediolateral oblique. Computer Aided Detection was performed. Mammogram Findings: The present examination has been compared to prior imaging studies performed at [facility] on 01/17/2016, 03/19/2017 and 09/14/2018. The breasts are extremely dense, which lowers the sensitivity of mammography. There are masses in both breasts. Impression: Masses in both breasts are benign. Annual screening mammography is recommended. OVERALL FINAL ASSESSMENT: BI-RADS CATEGORY 2: Benign. Procedure Note Christina Mcarthur MD - 03/13/2020 Mammogram Technique: Bilateral Digital Breast Tomosynthesis, Bilateral C-view 2D Screening mammogram. Views obtained: bilateral craniocaudal and bilateral mediolateral oblique. Computer Aided Detection was performed. Mammogram Findings: The present examination has been compared to prior imaging studies performed at [facility] on 01/17/2016, 03/19/2017 and 09/14/2018. The breasts are extremely dense, which lowers the sensitivity of mammography. There are masses in both breasts. Impression: Masses in both breasts are benign. Annual screening mammography is recommended. OVERALL FINAL ASSESSMENT: BI-RADS CATEGORY 2: Benign. Result [facility] Summer Cira Delaney NP IMG MAMMO PROCEDURES Jaja l Result from Last 3 Months or Most Recently Relevant to Health Maintenance Insurance [employer] [facility] CHOICE PLUS [facility] CHOICE PLUS Care Teams Vision Rehabilitation Therapist Relationship Specialty Start Date End Date [facility] [address] [place] [id number] PCP - General 09/15/18 No, Physician 09/15/18 [facility] [address] [place] [id number] 05/22/18
--- OUTSIDE RECORDS SUMMARY | 2025-02-04 06:11 | XMS_ITS | Encounter Summary ---
Author Organization [employer] Address 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 Gender Identity Not on file Sexual Orientation Not on file documented as of this encounter Plan of Treatment Not on file documented as of this encounter Procedures Procedure Name Priority Date/Time Associated Diagnosis Comments XR PANOREX Routine 08/09/2007 4:36 PM CDT WOUND CULTURE WITH GRAM STAIN Stat 08/09/2007 3:54 PM CDT documented in this encounter Results * XR PANOREX (08/09/2007 4:36 PM CDT) Anatomical Region Laterality Modality Head Other 08/09/2007 4:36 PM CDT Narrative 08/09/2007 4:54 PM CDT [facility] [address] [address] Admit Date: 08/09/2007 BERENICE APPLE Sex: F Admit Prov: ER, AUTHORIZED P Date: 1975 Primary Care Prov: PCP , NONE CMRN: [id number] Room: ER-A N: [id number] IMAGING SERVICES Ordering Prov: N/A Accession Number: [id number] Interpretation Panorex 08/09/2007 History: Pain . Findings: Comparison study is dated 06/14/2004. The periapical lucency is visualized at the mandibular second molars bilaterally. There is associated with bone loss which has progressed since the previous study consistent with gum disease. No fracture or subluxation is seen. . Dictated by: SHELIA RAMACHANDRAN 08/09/2007 16:52 Electronically signed by: SHELIA RAMACHANDRAN 08/09/2007 16:54 Procedure Note Shelia Ramachandran - 08/09/[address] [address] Admit Date: 08/09/2007 BERENICE APPLE Sex: F Admit Prov: ER, AUTHORIZED P Date: 1975 Primary Care Prov: PCP , NONE CMRN: [id number] [facility] N: [id number] IMAGING SERVICES Ordering Prov: N/A Interpretation Panorex 08/09/2007 History: Pain . Findings: Comparison study is dated 06/14/2004. The periapical lucencyis visualized at the mandibular second molars bilaterally. There isassociated with bone loss which has progressed since the previous studyconsistent with gum disease. No fracture or subluxation is seen. . Dictated by: SHELIA RAMACHANDRAN 08/09/2007 16:52 Electronically signed by: SHELIA RAMACHANDRAN 08/09/2007 16:54 Salas Dong MD DIAGNOSTIC IMAGING ORDERABLE S Final Result * WOUND CULTURE WITH GRAM STAIN (08/09/2007 3:54 PM CDT) GRAM STAIN No organisms seen Rare WBC's seen [facility] FINAL REPORT Very light growth Streptococcus viridans Very light growth Streptococcus viridans #2 [facility] Drainage fluid specimen (specimen) [place] / Unknown 08/09/2007 3:54 PM CDT 08/09/2007 4:07 PM CDT us Salas Dong MD MICROBIOLOGY - GENERAL ORDER LUIZ Final Result [facility] [address] [place] [address] documented in this encounter Visit Diagnoses Diagnosis Cellulitis and abscess of face Tobacco use disorder documented in this encounter Care Teams Pie Crust Mixer Relationship Specialty Start Date End Date Wanda Carreon MD PCP - General Internal Medicine 11/08/15 12/31/16 documented as of this encounter
== END 2025-02-04 06:13 | disposition home or self-care (01) ==
LOC: ANHED 06:09
PROVIDERS: Emergency Provider Student in an Organized Health Care Education/Training Program
DX: F41.9 Anxiety disorder, unspecified (principal); I10 Essential (primary) hypertension
CPT/HCPCS: 99281